=== PATIENT | male | born 1980 | race Caucasian/White ===

== ENCOUNTER 2025-01-12 06:55 | Day surgery (SDC) | payer MEDICAID, OTHER ==
[2025-01-12] MEDS ORDERED: Dextrose 5%-0.45% NaCl 1,000 ML IV SCH (07:00)
[2025-01-12] MEDS: Lactated Ringers 1,000 ML IV SCH (07:23)
[2025-01-12] MEDS ORDERED: Propofol 200 MG/20 ML SDV ONE (07:30)
== END 2025-01-12 09:06 | disposition home or self-care (01) ==
LOC: DL.ENDO 06:55
PROVIDERS: ATTEND Internal Medicine Gastroenterology
DX: Z12.11 Encounter for screening for malignant neoplasm of colon (principal); D12.3 Benign neoplasm of transverse colon; K57.30 Diverticulosis of large intestine without perforation or abscess without bleeding; I12.9 Hypertensive chronic kidney disease with stage 1 through stage 4 chronic kidney disease, or unspecified chronic kidney disease; N18.30 Chronic kidney disease, stage 3 unspecified
CPT/HCPCS: 45385; J7120